=== PATIENT | male | born 1950 | race Caucasian/White ===

== ENCOUNTER 2023-08-22 14:11 | Outpatient (OUT) | payer MEDICARE, SELFPAY ==
[2023-08-22 14:43] LABS: Anion Gap 7.5; BUN Creatinine Ratio 12.5; Calcium 8.9 mg/dL (8.5-10.1); Carbon Dioxide 30.4 mmol/L (21.0-32.0); Chloride 100 mmol/L (98-107); Estimated GFR (African America >60 (>=60); Estimated GFR (Non-African Ame 52 (>=60); Glucose 146 mg/dL (74-106); Potassium 3.9 mmol/L (3.5-5.1); Sodium 134 mmol/L (136-145)
== END 2023-08-22 14:12 | disposition home or self-care (01) ==
LOC: LAB 14:16
DX: N17.9 Acute kidney failure, unspecified (principal)
CPT/HCPCS: 36415; 80048